=== PATIENT | male | born 1955 | race Caucasian/White ===

== ENCOUNTER → 2023-04-19 11:04 | Outpatient (REF) | payer MEDICARE, OTHER, SELFPAY | LOC: DHCBS HW 11:04 | PROVIDERS: ATTENDING PHYSICIAN Nuclear Medicine Nuclear Cardiology; FAMILY PHYSICIAN Family Medicine | DX: I44.0 Atrioventricular block, first degree (principal); R94.31 Abnormal electrocardiogram [ECG] [EKG]; R06.02 Shortness of breath; Z82.49 Family history of ischemic heart disease and other diseases of the circulatory system; E78.2 Mixed hyperlipidemia | CPT/HCPCS: 93306 ==

== ENCOUNTER → 2023-07-01 09:58 | Outpatient (REF) | payer MEDICARE, OTHER, SELFPAY ==
--- NOTE | 2023-07-01 11:27 | CARDSERVDEF ---
Echocardiogram with Definity completed after protocol screening completed. Allergies verified. Pt here for Stress Echo
Patent IV site: Left antecubital 22 G PC , site clear____
IV site flushed with 0.9% NaCl pre and post administration.
Diluted bolus method utilized to enhance visualization of ventricular mccray.
Total volume given: __6__ mL
Patient tolerated all procedures well without complications.
Heplock D/C ed at 1125, site clear. Pressure held for few minutes, 2x2 applied and taped. No change in status, offers no complaints.
== END ==
LOC: RCS 09:58
PROVIDERS: ATTENDING PHYSICIAN Nurse Practitioner; FAMILY PHYSICIAN Family Medicine
DX: R94.31 Abnormal electrocardiogram [ECG] [EKG] (principal); R07.9 Chest pain, unspecified
CPT/HCPCS: 93017; 93350; Q9957

== ENCOUNTER → 2025-01-18 08:43 | Outpatient (REF) | payer MEDICARE, OTHER, SELFPAY ==
[2025-01-18 11:08] LABS: Hematocrit 42.7 % (39.0-52.0); Hemoglobin 14.7 g/dL (13.0-18.0); Mean Corp Hgb Conc. 34.4 g/dL (33.0-37.0); Mean Corpuscular Volume 94.7 fL (80.0-94.0); Platelet Count 292 10^3/uL (130-400); Red Cell Dist. Width 12.2 % (11.5-14.5)
[2025-01-18 11:16] LABS: Blood Urea Nitrogen 13 mg/dl (9-20); Calcium 9.5 mg/dl (8.4-10.2); Carbon Dioxide 32 mmol/L (22-30); Chloride 100 mmol/L (98-107); Glucose 86 mg/dl (70-99); Potassium 4.8 mmol/L (3.5-5.1); Sodium 137 mmol/L (135-145); eGFR > 60.00
== END ==
LOC: SDSPAT 08:43
PROVIDERS: ATTENDING PHYSICIAN Surgery; FAMILY PHYSICIAN Family Medicine
DX: Z01.818 Encounter for other preprocedural examination (principal)
CPT/HCPCS: 36415; 80048; 85027; 93005

== ENCOUNTER 2025-01-29 06:41 | Day surgery (SDC) | payer MEDICARE, OTHER, SELFPAY ==
[2025-01-18 13:46] VITALS: BMI 24.9
[2025-01-29] VITALS (7 sets, daily range): BP systolic 112–147; BP diastolic 63–76; BMI 24.9
[2025-01-29] MEDS: TYLENOL 1000 MG PO (10:39)
[2025-01-29] MEDS: NORMOSOL-R/PLASMALYTE-A 1000 IV (11:02)
--- NOTE | 2025-01-29 11:02 | HP.FOC2 ---
Focused History & Physical
Chief Complaint
HPI:
Chief Complaint: Left inguinal hernia, possible right
HPI / Indication for Planned Procedure: 69-year-old male recently seen in outpatient surgical evaluation secondary to a few month history of an ache and swelling in the left inguinal region. Physical examination confirmed the presence of a readily
apparent left inguinal hernia which was reducible. There is a bit of fullness in the right inguinal region but a readily apparent right inguinal hernia was not confirmed. After discussions regarding treatment options the patient wished to pursue
operative correction. We discussed various operative approaches to repair and have elected to proceed with a robotic assisted laparoscopic left inguinal hernia repair with mesh possible right.
Relevant Past Medical History: Other (Hyperlipidemia, asthma)
Relevant Social History: Negative
Relevant Family History: Negative
Relevant Past Surgical History: Positive for (Removal of melanoma, laparoscopic sigmoidectomy)
Review of Systems
Review of Pertinent Systems: All Systems Negative
Medication
See Medication form for detailed medications: Yes
Medication List (including Herbals & OTC):
beclomethasone dipropionate 40 mcg/actuation HFA breath activated aerosol (Qvar RediHaler) 1 inh inhalation HS Lung/Breathing Issues 10/02/22
fluticasone propionate 50 mcg/actuation nasal spray,suspension 2 spray intranasal HS Allergies 10/02/22
simvastatin 40 mg tablet 40 mg PO HS High Cholesterol 10/02/22
ascorbic acid (vitamin C) 500 mg tablet (Vitamin C) 500 mg PO DAILY 01/22/25
multivitamin 1 tab PO DAILY 01/22/25
saw palmetto 1 dose PO TID 01/22/25
vitamin E 1 dose PO DAILY 01/22/25
Medications Reviewed: Yes
Allergies and Reactions
Patient has Allergies: No
Noted Allergies and Reactions:
Allergy/AdvReac Type Severity Reaction Status Date / Time
No Known Allergies Allergy Unverified 01/29/25 10:32
Pertinent Physical Exam
All Other Systems: Negative
Head/Neck: Normal
Lungs: Normal
Heart: Normal
Abdomen: Other (Reducible left inguinal hernia. Right inguinal fullness. Laparoscopic surgical scar in the left lower quadrant and adjacent areas. No incisional hernia.)
Extremities: Normal
Neurological: Normal
Diagnosis / Assessment
69-year-old male presenting for scheduled operative correction symptomatic left inguinal hernia, possible right
Plan / Procedure
Robotic assisted laparoscopic repair left inguinal hernia with mesh, possible right
Anesthesia/Sedation to be done by Anesthesia Provider: Yes
--- NOTE | 2025-01-29 11:04 | W.SUR.PREOP ---
Pre-Operative Surgical Note
-
I have examined this patient prior to the performance of the scheduled procedure.
The patient's condition is unchanged from the time of the current History and
Physical and the patient is able to undergo the scheduled procedure.
--- NOTE | 2025-01-29 13:06 | W.IMMPOSTOP ---
Addendum entered and electronically signed by Sukhdev Turner MD 01/29/25 13:18:
#[id number]
Original Note:
Surgical Immed Post Op Note
-
Primary Surgeon: Sukhdev Turner MD
Assisting Surgeon: Melba Hutchinson PA-C
Pre-op Diagnosis: Left inguinal hernia
Post-op Diagnosis: Left inguinal hernia; indirect
Procedure Performed: Robotic assisted laparoscopic DELIA repair left inguinal hernia with mesh; 3D max large mid weight
Anesthesia Type: GETA +0.25% Marcaine with epinephrine
Specimen / Cultures: None
Estimated Blood Loss: 8 mL
Complications: None immediate
Operative Findings: Left indirect inguinal hernia. Small lipoma of cord structures reduced and excised to facilitate mesh placement. Left direct and femoral spaces normal. 3D max large mid weight mesh repair secured to Stephane's ligament with 2-0
Vicryl stitch x 2. Indirect inguinal hernia sac ligated at neck with 2-0 Vicryl suture. Right inguinal region without peritoneal protrusion within indirect or direct locations. No significant adhesions identified from prior history of lap sigmoid.
The assistance of Melba Hutchinson PA-C was required due to the complexity of the procedure. During the procedure Melba Hutchinson PA-C assisted with port placement, robotic instrumentation and suture material exchanges, and closure of the surgical incision
sites. I was present for the entirety of the operative procedure.
== END 2025-01-29 15:00 | disposition home or self-care (01) ==
LOC: SDS 06:41
PROVIDERS: ATTENDING PHYSICIAN Surgery
DX: K40.90 Unilateral inguinal hernia, without obstruction or gangrene, not specified as recurrent (principal)
CPT/HCPCS: 49650; C1781